=== PATIENT | female | born 1995 | race Caucasian/White ===

== ENCOUNTER 2021-10-13 15:14 | Emergency (ER) | payer OTHER ==
[2021-10-13 15:27] VITALS: BP 124/74; PULSE 102; TEMP 97.7; BMI 38.7
[2021-10-13] MEDS ORDERED: IBUPROFEN 600 MG TABLET (FP) PO ONE ×2 (15:28→16:33)
== END 2021-10-13 16:46 | disposition home or self-care (01) ==
LOC: JER 15:14 → JERFT 15:14
DX: M25.511 Pain in right shoulder (principal)
CPT/HCPCS: 73030-TC-RT-FY; 99284-25

== ENCOUNTER 2022-08-12 16:37 | Emergency (ER) | payer OTHER ==
[2022-08-12 17:02] VITALS: BP 110/75; PULSE 73; RESP 18; TEMP 98.1; BMI 34.4
== END 2022-08-12 18:40 | disposition home or self-care (01) ==
LOC: JERFT 16:37 → JER 16:37 → JERFT 18:40
DX: H10.33 Unspecified acute conjunctivitis, bilateral (principal)
CPT/HCPCS: 99283-25